=== PATIENT | female | born 1990 | race Caucasian/White ===

== ENCOUNTER 2023-01-13 09:46 | Day surgery (SDC) | payer BC, SELFPAY ==
[2023-01-13 10:13] LABS: Internal QC Validated? YES +Cl - CLEAR BKGD; Pregnancy, Urine Negative Negative
--- NOTE | 2023-01-13 10:14 | PCM.HP.BLA ---
History and Physical Date of Admission: 01/13/23 Pt examined and there are no changes to the physical exam dated 01/09/23. She has a subcutaneous right cheek mass with intact overlying skin. She is here for removal of a right cheek mass. 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
[2023-01-13] MEDS: Lactated Ringers 1,000 ML 15 ML IV (10:15)
[2023-01-13 10:16] VITALS: BP 158/78; PULSE 80; RESP 18; TEMP 37.1; O2SAT 100; BMI 39.9
[2023-01-13] MEDS: Cefazolin 2 GM in 0.9% Normal Saline (100mL Bag) 100 ML IV (10:44)
[2023-01-13] MEDS: Povidone Iodine 30 ML Opthalmic Sol 1 DRP (11:10)
[2023-01-13] MEDS: Lidocaine 1% /Epi 1:100 (20ml) 20 ML Vial (11:12)
--- NOTE | 2023-01-13 11:30 | SOF_PTH ---
PATIENT: LAURA PIEDRA [place] [facility] [place][id number] AGE/SX: 32/F ROOM: RE01/13/[address]: Dr. Flakita Willis MD : [id number] BED: DIS: 01/13/2023 SPEC #: [id number] RECD: 01/13/23 12:10 STATUS: ELLIE LISA #: [id number] AMELIA: 01/13/23 11:[address]: Flakita Willis DEPT: SURGICAL PATHOLOGY RECD BY: Darryl Grubbs Tissues: Cheek, NOS Procedures: Surgery Specimen Level IV HEADER OPERATION: Excision SQ mass right cheek PRE-OP DIAGNOSIS: Neoplasm of face TISSUE SUBMITTED: Right cheek SQ mass MICROSCOPIC DIAGNOSIS Right cheek lesion, excision: Pilomatricoma with degenerative change. AM:christoph 01/16/2023 MICROSCOPIC DESCRIPTION Slides are reviewed. GROSS DESCRIPTION Received in fixative is one container labeled with the patient's name and designated right cheek mass. The specimen consists of an ellipse of light hdz excised skin measuring 1.8 x 1.2 cm. Attached to this is an ovoid, yellow-white nodule measuring 2.0 x 1.0 x 1.0 cm. The specimen is inked and sectioned to reveal yellow granular cut surface. The specimen is totally submitted in two cassettes. / AM:christoph 01/13/2023 TC:5 CPT: 32932
--- NOTE | 2023-01-13 11:50 | DCINST_ITS ---
Discharge Instructions Diet Discharge Diet: No restrictions Activity Additional Activity Instructions:: Keep back elevated (recliner position) for the next 4 nights to reduce swelling and bruising. Take the oral antibiotic (Keflex) 2 x a day until finished. Keep the steri-strips dry. Do not remove until seen in the office. Follow Up Care Test Results: Test results from this visit will be discussed in further detail at your follow- up appointment, if applicable. Discharge Plan Admission Attending Provider: Flakita Willis Primary Care Provider: ERNST REYNOSO Discharge Orders/Prescriptions Prescriptions: New cephalexin 500 mg capsule 500 mg PO BID Qty: 10 0RF No Action Adult 50 Plus Probiotic 4 billion cell capsule 4,000 mmu cells PO DAILY Zyrtec 10 mg capsule 10 mg PO DAILY PRN (Reason: allergy symptoms) vitamin D3-vitamin K2 125-90 mcg capsule 3 cap PO DAILY Disposition Disposition (needs filled in before D/C Order can be placed): Home, Self Care
[2023-01-13 11:51] VITALS: BP 120/79; BP 158/78; PULSE 107; RESP 16; TEMP 36.4; O2SAT 97
--- NOTE | 2023-01-13 11:55 | OP.PCM_ITS ---
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 The resulting incision and scar was reviewed with the patient. She is aware the specimen will be sent to pathology. She agrees and wishes to proceed. The patient was brought to the operating room and placed under general anesthesia in the supine position. The right face is prepped and draped in the usual sterile fashion. 1% Xylocaine with epinephrine is injected around the periphery of the mass to facilitate hemostasis. We initially began with an elliptical incision over top of the mass. Careful dissection continues down into the subcutaneous fat until the wall of the mass is identified. It is carefully enucleated from its bed. Hemostasis is controlled with cautery. The wound is then closed in layers using Vicryl suture in the subcutaneous tissue and dermis. Skin edges were approximated with a running subcuticular Monocryl suture. Dermabond and Steri-Strips are applied. She tolerated the procedure well was taken to the recovery area in an awake and stable condition. Needle and sponge counts were correct. Complications None Admit VTE Documentation VTE Mechan Device Prophylaxis: SCD's
[2023-01-13 12:00] VITALS: BP 121/73; BP 158/78; PULSE 107; RESP 18; O2SAT 96
[2023-01-13 12:15] VITALS: BP 127/73; BP 158/78; PULSE 93; RESP 16; TEMP 36.6; O2SAT 96
[2023-01-13 12:30] VITALS: BP 130/77; BP 158/78; PULSE 85; RESP 16; TEMP 36.4; O2SAT 96
[2023-01-13 12:56] VITALS: BP 158/78
== END 2023-01-13 13:26 | disposition home or self-care (01) ==
LOC: SDC 09:48 → AC 09:50
PROVIDERS: Anesthesiology; Referring Provider Plastic Surgery; Visit Provider Plastic Surgery
PROC: (CPT 21012; principal; 2023-01-13 11:15)
DX: D48.19 Other specified neoplasm of uncertain behavior of connective and other soft tissue (principal)
CPT/HCPCS: 21012; 00300; 81025; 88305; J7120; J2405